=== PATIENT | female | born 1935 | race Caucasian/White ===

== ENCOUNTER 2016-05-18 09:26 | Outpatient (CLI) | payer MEDICARE, BC ==
[~2016-05-18] VITALS: Ht 165.1 cm; Wt 45.5 kg
[2016-05-18] VITALS (19 sets, daily range): BP systolic 122–180; BP diastolic 43–66; PULSE 56–74; TEMP 98.2
[~2016-05-18 09:26] MED LIST: ASPIRIN E.C. 8181 MG PO; GLUCOPHAGE500 MG/TAB PO; LEXAPRO 10MG10 MG PO; LIPITOR 10MG10 MG PO; MULTIPLE VITAMI1 CAP PO; NORVASC 5MG5 MG/TAB PO; SYNTHROID0.075 MG/T PO; SYNTHROID0.1 MG/TAB PO; TESSALON P100 MG/CAP PO
== END 2016-05-18 17:15 | disposition home or self-care (01) ==
LOC: COL.RAD 09:26
DX: C34.12 Malignant neoplasm of upper lobe, left bronchus or lung (principal)
CPT/HCPCS: J2250; J3010

== ENCOUNTER 2016-12-02 15:02 | Emergency (ER) | payer MEDICARE, BC ==
[~2016-12-02] VITALS: Ht 167.6 cm; Wt 54.5 kg
[2016-12-02 15:05] VITALS: TEMP 98.2
[2016-12-02 16:00] VITALS: BP 155/89; PULSE 68
== END 2016-12-02 16:08 | disposition home or self-care (01) ==
LOC: COL.ER 15:02
DX: S01.81XA Laceration without foreign body of other part of head, initial encounter (principal); E78.00 Pure hypercholesterolemia, unspecified; E03.9 Hypothyroidism, unspecified; Z79.82 Long term (current) use of aspirin; Z23 Encounter for immunization; W01.10XA Fall on same level from slipping, tripping and stumbling with subsequent striking against unspecified object, initial encounter; Y92.59 Other trade areas as the place of occurrence of the external cause

== ENCOUNTER 2016-12-11 17:38 | Emergency (ER) | payer MEDICARE, BC ==
[2016-12-11 17:41] VITALS: BP 148/61; PULSE 65
== END 2016-12-11 17:50 | disposition home or self-care (01) ==
LOC: COL.ER 17:38
DX: S01.112D Laceration without foreign body of left eyelid and periocular area, subsequent encounter (principal); X58.XXXD Exposure to other specified factors, subsequent encounter